=== PATIENT | male | born 1960 ===

== ENCOUNTER 2019-02-06 17:54 | Emergency (ER) | payer SELFPAY ==
[2019-02-06 18:13] VITALS: BP 154/76
[2019-02-06] MEDS ORDERED: Tetan/Diph/Pertus SYR(Tdap)* 0.5 ML SYR(BOOSTRIX) use SYR contains LATEX IM ONE (18:43)
[2019-02-06] MEDS ORDERED: Tetracaine 0.5% OPTH.SOL 4 ML* 1 DROP BTL LEFT EYE ONE (19:13)
--- NOTE | 2019-02-06 19:13 | UC ---
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 Pt was making a platform with safety glasses on. Cutting a post yesterday that had rebar in it and thinks he might have a piece of metal in his eye" -here w/ his . has washed his eye out well but doesnt know if the metal is still in there -still painful and watering -no loss of vision. - History of Current Complaint Chief Complaint: UCEye Stated Complaint: LEFT EYE PROBLEM Time Seen by Provider: 02/06/19 18:42 Pain Intensity: 5 - Allergies/Home Medications Allergies/Adverse Reactions: Allergies Allergy/AdvReac Type Severity Reaction Status Date / Time No Known Allergies Allergy Verified 02/06/19 18:13 PMH/Surg Hx/FS Hx/Imm Hx Previously Healthy: Yes - Surgical History Surgical History: None - Family History Known Family History: Positive: Hypertension - Social History Alcohol Use: Occasionally Substance Use Type: None Smoking Status (MU): Never Smoked Tobacco Type: Smokeless Tobacco Review of Systems All Other Systems Reviewed And Are Negative: Yes Constitutional: Positive: Negative Skin: Positive: Negative Eyes: Positive: Drainage, Other ENT: Positive: Negative Respiratory: Positive: Negative Cardiovascular: Positive: Negative Motor: Positive: Negative Neurovascular: Positive: Negative Musculoskeletal: Positive: Negative Neurological: Positive: Negative Psychological: Positive: Negative Is Patient Immunocompromised?: No Physical Exam Triage Information Reviewed: Yes Appearance: Pain Distress - mild - uncomfortable Vital Signs: Initial Vital Signs Temp 99.3 F 02/06/19 18:07 Pulse 71 02/06/19 18:07 Resp 18 02/06/19 18:07 BP 154/76 02/06/19 18:07 Pulse Ox 97 02/06/19 18:07 Eyes: Positive: Conjunctiva Clear, Discharge - watery, no erythema. left iris 3 oclock w/ 1 mm embedded dark FB. applied 1 gtt of tetracaine and gently attempted to roll off w/ tip of sterile qtip w/o success. tolerated well. no trauma. ENT Exam: Normal Respiratory Exam: Normal Cardiovascular Exam: Normal Eye Complaint Course/Dx - Course Course Of Treatment: Left eye foreign body x > 24 hrs, believes it is metal. unable to remove. 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 -they v/u - Differential Dx/Diagnosis Differential Diagnosis/HQI/PQRI: Conjunctivitis, Corneal Abrasion, Foreign Body Provider Diagnosis: Foreign body of left eye Discharge ED - Sign-Out/Discharge Documenting (check all that apply): Patient Departure All imaging exams completed and their final reports reviewed: No Studies - Discharge Plan Condition: Stable Disposition: HOME Prescriptions: Gentamicin 0.3% OPHTH.SOLN* 1 drop LEFT EYE Q4H #1 btl Patient Education Materials: Eye Foreign Body (ED) Referrals: Edie Lee MD [Primary Care Provider] - Rodri Martínez MD [Medical Doctor] - 1 Day Additional Instructions: We were unable to remove the piece of metal from your eye tonight. Please go to Dr Martínez's office in the morning to be seen to have it removed. Make sure to start the eye drops tonight. - Billing Disposition and Condition Condition: STABLE Disposition: Home
== END 2019-02-06 19:29 | disposition home or self-care (01) ==
LOC: UCCORT 17:54
DX: T15.92XA Foreign body on external eye, part unspecified, left eye, initial encounter (principal); T15.91XA Foreign body on external eye, part unspecified, right eye, initial encounter; X58.XXXA Exposure to other specified factors, initial encounter; Y93.89 Activity, other specified; Y92.9 Unspecified place or not applicable
CPT/HCPCS: 99212; A9270-GY; G0463